=== PATIENT | male | born 1940 | race Caucasian/White ===

== ENCOUNTER 2019-06-16 19:19 | Emergency (ER) | payer MEDICARE, MEDICAID ==
[~2019-06-16] VITALS: Ht 182.9 cm; Wt 86.2 kg
[2019-06-16 20:08] VITALS: BP 126/73
--- NOTE | 2019-06-16 20:09 | NUR ---
Patient discharged to home in stable condition. Written and verbal after care instructions given. Patient verbalizes understanding of instruction. pt denied any dizziness, or H/A upon doscharge.
== END 2019-06-16 20:09 | disposition home or self-care (01) ==
LOC: ER 19:23
DX: I10 Essential (primary) hypertension (principal); Z95.818 Presence of other cardiac implants and grafts